=== PATIENT | female | born 1945 | race Two or more races ===

== ENCOUNTER → 2018-07-29 | Outpatient (CLI) | payer MEDICARE, OTHER ==
[~2018-07-29] MED LIST: ASPIR 8181 MG PO; LOSARTAN POTASS25 MG PO; METOPROLOL TART50 MG PO; SIMVASTATIN40 MG PO
--- NOTE | 2018-08-18 08:45 | Diagnostic Imaging Report ---
#[id number] - MGSCRBIL #BILATERAL DIGITAL SCREENING MAMMOGRAM WITH CAD: 07/29/2018 CLINICAL: Routine screening. Comparison is made to exams dated: 08/04/2017 mammogram and 03/04/2013 mammogram - [facility]. Current study contains 4 films. There are scattered fibroglandular elements in both breasts. Current study was also evaluated with a Computer Aided Detection (CAD) system. There are benign calcifications in both breasts. There also are benign lymph nodes in both breasts. No significant masses, calcifications, or other findings are seen in either breast. There has been no significant interval change. IMPRESSION: BENIGN There is no mammographic evidence of malignancy. A 1 year screening mammogram is recommended. The patient will be notified by letter of the results. [place]/dayanna:08/17/2018 11:46:37 [employer] Driver: Brooklynn TORRES(Therese)(Tim), [facility] letter sent: Compared to Prior B9 Mammogram BI-RADS: 2 Benign
== END ==
LOC: MAMMO 08:39
PROVIDERS: ATTEND Internal Medicine
DX: Z12.31 Encounter for screening mammogram for malignant neoplasm of breast (principal)
CPT/HCPCS: 77067

== ENCOUNTER → 2019-08-25 | Outpatient (CLI) | payer MEDICARE, OTHER | LOC: MAMMO 09:59 | PROVIDERS: ATTEND Family Medicine | DX: Z12.31 Encounter for screening mammogram for malignant neoplasm of breast (principal) | CPT/HCPCS: 77067 ==

== ENCOUNTER → 2020-08-21 | Outpatient (CLI) | payer MEDICARE, OTHER | LOC: DX 11:07 | PROVIDERS: ATTEND Family Medicine | DX: Z78.0 Asymptomatic menopausal state (principal); M81.8 Other osteoporosis without current pathological fracture | CPT/HCPCS: 77080 ==

== ENCOUNTER → 2022-08-06 | Outpatient (CLI) | payer MEDICARE, BC | LOC: US 08:29 | PROVIDERS: ATTEND Obstetrics & Gynecology | DX: R19.00 Intra-abdominal and pelvic swelling, mass and lump, unspecified site (principal) | CPT/HCPCS: 76882 ==